=== PATIENT | male | born 1950 | race Caucasian/White ===

== ENCOUNTER 2020-07-02 09:45 | Inpatient (IN) | payer MEDICAID, MEDICARE ==
[~2020-07-02] VITALS: Ht 165.1 cm; Wt 117.9 kg
--- NOTE | 2020-07-02 10:10 | NUR ---
Dr ramirez at the bedside for eval. Pt's o2 sat on room air 70%, place pt on NRM at 15L, O2 sat improved to 93%.
[2020-07-02] MEDS ORDERED: IVERMECTIN PO (10:23)
[2020-07-02] MEDS ORDERED: DEXAMETHASONE SOD PHOSPHATE 4 MG INJ IV ONE (10:30)
[2020-07-02] MEDS ORDERED: DEXAMETHASONE SOD PHOSPHATE 10 MG INJ ONE (10:31)
[2020-07-02 10:33] LABS: BASOPHILS # (AUTO) 0.4 K/uL (0.0-8.0); HEMATOCRIT 40.4 % (36.7-47.1); HEMOGLOBIN 13.7 g/dL (12.5-16.3); LYMPHOCYTES # (AUTO) 0.9 K/uL (20.0-40.0); LYMPHOCYTES % (AUTO) 15.4 % (20.5-51.5); MEAN CORPUSCULAR HEMOGLOBIN 30.1 uug (23.8-33.4); MEAN CORPUSCULAR HGB CONC 34 g/dL (32.5-36.3); MEAN CORPUSCULAR VOLUME 88.9 fL (73.0-96.2); MONOCYTES # (AUTO) 0.5 K/uL (2.0-10.0); MONOCYTES % (AUTO) 8.2 % (0.0-11.0); NEUTROPHILS # (AUTO) 4.3 K/uL (1.8-8.9); PLATELET COUNT (AUTO) 302 K/uL (152-348); RED BLOOD CELL COUNT(AUTO) 4.54 MIL/uL (4.06-5.63); WHITE BLOOD COUNT (AUTO) 6.1 K/uL (3.6-10.2)
--- NOTE | 2020-07-02 10:35 | NUR ---
RT at the bedside for ABG.
[2020-07-02 10:39] LABS: ABG BASE EXCESS 1.7 mmol/L; ABG HCO3 24.7 mmol/L; ABG PCO2 33.9 mmHg (35.0-45.0); ABG PO2 62.2 mmHg (75.0-100.0); ABG SITE LEFT RADIAL; ABG TOTAL HEMOGLOBIN 13.6 G/dL (13.5-18.0); COHb 1.1 % (0.5-1.5); MetHb 0.1 % (0.0-1.5); O2Hb 91.8 % (94.0-97.0)
[2020-07-02 10:44] LABS: CREATININE 1.2 mg/dL (0.6-1.3); POTASSIUM 3.9 mmol/L (3.5-5.1)
[2020-07-02] MEDS ORDERED: ACETAMINOPHEN ES 500 MG TABLET ONE (10:58)
[2020-07-02] MEDS ORDERED: AZITHROMYCIN IV 500 MG in IV DEXTROSE 5% 250 ML IV ONE (11:00)
[2020-07-02] MEDS ORDERED: IV NORMAL SALINE 1000 ML BAG IV ONE (11:00)
[2020-07-02] MEDS ORDERED: CEFTRIAXONE 1 G in IV DEXTROSE 5% 50 ML IV ONE (11:00)
[2020-07-02] MEDS ORDERED: ACETAMINOPHEN 325 MG TABLET PO ONE (11:00)
[2020-07-02 11:01] LABS: BILIRUBIN,DIRECT 0.3 mg/dL (0.0-0.2); BILIRUBIN,TOTAL 0.8 mg/dL (0.2-1.0); TOTAL PROTEIN, SERUM 7.4 g/dL (6.4-8.2)
[2020-07-02] MEDS ORDERED: CEFTRIAXONE /D5W 50ML IVPB **ER PYXIS IV ONE (11:12)
[2020-07-02] MEDS ORDERED: AZITHROMYCIN 500MG/ D5W 250ML IVPB **ER PYXIS ONLY IV ONE (11:13)
--- NOTE | 2020-07-02 11:20 | NUR ---
Pt to be admitted to [facility] bed, to Dr Rodriguez.
[2020-07-02] MEDS ORDERED: BENA40TA8 PO (12:53)
[2020-07-02] MEDS ORDERED: TERA2CAP4 PO (12:53)
[2020-07-02] MEDS ORDERED: ALBUTEROL SULFATE 8 GM HFA.AER.AD IH PRN (13:30)
[2020-07-02] MEDS ORDERED: ONDANSETRON 4 MG/2 ML VIAL IV PRN (13:30)
--- NOTE | 2020-07-02 14:31 | NUR ---
Pt continues to be on the High flow Nasal canula @ 40L oxygen.
--- NOTE | 2020-07-02 14:40 | NUR ---
RECEIVED PATIENT FOR ADMISSION 70 YEARS MALE BY W/CHAIR WITH DX OF PNEUMONIA PLACED INTO BED FIXED AND MADE COMFORTABLE PATIENT ORIENTED TO ROOM AND FACILITY PROTOCOL HE OS HO YANDEL O2 AT 40 PERCENT WITH SATS AT 96 PERCENT DENIES PAIN OR DISCOMFORTS AT THIS TIME WILL CONTINUE TO OBSERVE.
--- NOTE | 2020-07-02 16:47 | NUR ---
PATIENT REMOVED HIS CANULA FOR THE HIGH YANDEL SEEN IN THE BATHROOM ASKED HIM IF IT WILL BE POSSIBLE TO USE THE URINAL HE STATED NO PREFERS TO GO TO THE BATHROOM NOTED COUGHING EPISODES.
[2020-07-02 18:19] VITALS: BP 145/86
--- NOTE | 2020-07-02 19:30 | NUR ---
RECEIVED PT AWAKE, ALERT AND ORIENTEDX4. PT COUGHING. IV INTACT. PT ON HIGH FLOW OXYGEN. PT HAVE STEADY GAIT. SAFETY AND COMFORT PROVIDED. WILL CONTINUE TO MONITOR.
[2020-07-02 20:00] VITALS: BP 150/52
[2020-07-02] MEDS: TERAZOSIN 1 MG CAPSULE PO SCH (20:40)
[2020-07-02] MEDS: FAMOTIDINE 20 MG TABLET PO SCH (20:41)
[2020-07-02] MEDS: GUAIFENESIN/DEXTROMETHORPHAN 5 ML UDC PO PRN (21:20)
[2020-07-02] MEDS: ACETAMINOPHEN 325 MG TABLET PO PRN (21:20)
[2020-07-02] MEDS: ENOXAPARIN SODIUM 40 MG/0.4 ML DISP.SYRIN SQ SCH (21:58)
[2020-07-03 00:10] VITALS: BP 144/86
[2020-07-03 00:58] LABS: *BILIRUBIN,URIN NEGATIVE (NEGATIVE); *BLOOD, URINE NEGATIVE (NEGATIVE); *CLARITY,URINE CLEAR (CLEAR); *COLOR,URINE DARK YELLOW (YELLOW); *KETONES,URINE NEGATIVE (NEGATIVE); *UROBILINOGEN,URINE 0.2 E.U./dl (NORMAL); LEUKOCYTE ESTERASE ,URINE NEGATIVE (NEGATIVE); NITRITE, URINE NEGATIVE (NEGATIVE); UGLUCOSE NEGATIVE (NEGATIVE)
[2020-07-03] MEDS: ACETAMINOPHEN 325 MG TABLET PO PRN ×2 (03:24→21:45)
[2020-07-03] MEDS: GUAIFENESIN/DEXTROMETHORPHAN 5 ML UDC PO PRN ×2 (03:24→21:45)
[2020-07-03 05:02] VITALS: BP 140/68
--- NOTE | 2020-07-03 06:19 | NUR ---
PT SLEPT INTERMITTENTLY. PT IN NO ACUTE DISTRESS. PRESCRIBED MEDICATION GIVEN AND PT TOLERATED IT WELL. IV INTACT. PT ON HIGH FLOW OXYGEN. AT 2029H DR. AMANDA ORDERED ROBITUSSIN DM 10ML Q6HPRN FOR PT. AT 2119HAND 032H ROBITUSSIN DM PRN AND TYLENOL PRN GIVEN FOR PT. PT TOLERATED IT WELL. SAFETY AND COMFORT PROVIDED. ALL NEEDS ARE MET. WILL ENDORSE TO INCOMING NURSE FOR CONTINUTIY OF CARE.
[2020-07-03 06:40] LABS: BASOPHILS % (AUTO) 0.1 % (0.0-2.0); HEMATOCRIT 38.9 % (36.7-47.1); LYMPHOCYTES # (AUTO) 0.9 K/uL (20.0-40.0); LYMPHOCYTES % (AUTO) 16.8 % (20.5-51.5); MEAN CORPUSCULAR HEMOGLOBIN 30.3 uug (23.8-33.4); MEAN CORPUSCULAR HGB CONC 33 g/dL (32.5-36.3); MEAN CORPUSCULAR VOLUME 90.8 fL (73.0-96.2); MONOCYTES # (AUTO) 0.6 K/uL (2.0-10.0); MONOCYTES % (AUTO) 11.4 % (0.0-11.0); NEUTROPHILS # (AUTO) 3.8 K/uL (1.8-8.9); NEUTROPHILS % (AUTO) 71.7 % (38.5-71.5); PLATELET COUNT (AUTO) 295 K/uL (152-348); RED BLOOD CELL COUNT(AUTO) 4.29 MIL/uL (4.06-5.63); WHITE BLOOD COUNT (AUTO) 5.3 K/uL (3.6-10.2)
--- NOTE | 2020-07-03 07:30 | NUR ---
Received pt sitting on edge of bed, A&Ox4. No s/s of acute distress, no SOB. Pt on O2 via high flow NC at 40 L. No cough. Pt denies pain or discomfort. IV patent and intact. Call light and belongings in reach. Safety precautions in place. Will continue plan of care, will continue to monitor.
[2020-07-03 07:50] LABS: BILIRUBIN,TOTAL 0.6 mg/dL (0.2-1.0); CREATININE 0.9 mg/dL (0.6-1.3); POTASSIUM 4.1 mmol/L (3.5-5.1); TOTAL PROTEIN, SERUM 6.9 g/dL (6.4-8.2)
[2020-07-03] MEDS: FAMOTIDINE 20 MG TABLET PO SCH ×2 (09:51→21:45)
[2020-07-03] MEDS: DEXAMETHASONE SOD PHOSPHATE 4 MG INJ IV SCH (09:52)
[2020-07-03] MEDS: BENAZEPRIL HCL 20 MG TABLET PO SCH (10:38)
[2020-07-03] MEDS ORDERED: CEFTRIAXONE 1 G in IV DEXTROSE 5% 50 ML IV SCH (11:00)
[2020-07-03 11:08] VITALS: BP 143/71
[2020-07-03] MEDS: AZITHROMYCIN IV 500 MG in IV DEXTROSE 5% 250 ML IV SCH (13:50)
[2020-07-03] MEDS ORDERED: ACETAMINOPHEN 325 MG TABLET PO ONE (14:30)
[2020-07-03] MEDS ORDERED: diphenhydrAMINE 50 MG/1 ML VIAL IV ONE (14:30)
[2020-07-03] MEDS ORDERED: TOCILIZUMAB 400 MG in IV NORMAL SALINE 80 ML IV ONE (15:00)
[2020-07-03 16:19] VITALS: BP 139/74
[2020-07-03] MEDS: TERAZOSIN 1 MG CAPSULE PO SCH (17:11)
--- NOTE | 2020-07-03 18:30 | NUR ---
IV Actemra administered to pt per order. No s/s of adverse reaction, no SOB. Pt denies pain or discomfort. Will continue to monitor.
--- NOTE | 2020-07-03 19:27 | NUR ---
Pt in bed, no s/s of acute distress, no SOB. Pt denies pain or discomfort. All due medications given per order. All care given as ordered. All needs met throughout shift. Safety measures maintained. Call light within reach, usage reinforced. Belongings within reach. Will endorse care to council member nurse.
--- NOTE | 2020-07-03 19:30 | NUR ---
RECEIVED PT AWAKE, ALERT AND ORIENTEDX4. IV INTACT. PT ON HIGH FLOW OXYGEN. SAFETY AND COMFORT PROVIDED. WILL CONTINUE TO MONITOR.
[2020-07-03 20:00] VITALS: BP 131/64
[2020-07-03] MEDS: ENOXAPARIN SODIUM 40 MG/0.4 ML DISP.SYRIN SQ SCH (21:45)
[2020-07-04 01:03] VITALS: BP 139/76
[2020-07-04 04:00] VITALS: BP 131/71
[2020-07-04] MEDS: ACETAMINOPHEN 325 MG TABLET PO PRN ×2 (05:00→18:03)
[2020-07-04] MEDS: GUAIFENESIN/DEXTROMETHORPHAN 5 ML UDC PO PRN ×2 (05:00→18:05)
--- NOTE | 2020-07-04 06:21 | NUR ---
PT SLEPT INTERMITTENTLY. PT IN NO ACUTE DISTRESS. IV INTACT. PT ON 40L HIGH FLOW. PRESCRIBED MEDICATION GIVEN AND PT TOLERATED IT WELL. PT GIVEN TYLENOL 650 MG PRN AND ROBITUSSIN DM PRN AT 2145H AND 0500H. SAFETY AND COMFORT PROVIDED. ALL NEEDS ARE MET.WILL CONTINUE TO MONITOR.
[2020-07-04 08:36] LABS: CREATININE 0.9 mg/dL (0.6-1.3); POTASSIUM 4.6 mmol/L (3.5-5.1)
[2020-07-04] MEDS: BENAZEPRIL HCL 20 MG TABLET PO SCH (09:11)
[2020-07-04] MEDS: FAMOTIDINE 20 MG TABLET PO SCH ×2 (09:11→20:09)
[2020-07-04] MEDS: DEXAMETHASONE SOD PHOSPHATE 4 MG INJ IV SCH (09:12)
[2020-07-04] MEDS: AZITHROMYCIN IV 500 MG in IV DEXTROSE 5% 250 ML IV SCH (10:50)
[2020-07-04 11:39] VITALS: BP 153/92
[2020-07-04 11:44] LABS: BASOPHILS # (AUTO) 0.1 K/uL (0.0-8.0); BASOPHILS % (AUTO) 2.5 % (0.0-2.0); EOSINOPHILS % (AUTO) 0.2 % (0.0-7.0); HEMATOCRIT 42.9 % (36.7-47.1); LYMPHOCYTES # (AUTO) 0.8 K/uL (20.0-40.0); LYMPHOCYTES % (AUTO) 13.8 % (20.5-51.5); MEAN CORPUSCULAR HEMOGLOBIN 29.8 uug (23.8-33.4); MEAN CORPUSCULAR HGB CONC 33 g/dL (32.5-36.3); MEAN CORPUSCULAR VOLUME 91.3 fL (73.0-96.2); MONOCYTES # (AUTO) 0.4 K/uL (2.0-10.0); MONOCYTES % (AUTO) 6.8 % (0.0-11.0); NEUTROPHILS # (AUTO) 4.5 K/uL (1.8-8.9); NEUTROPHILS % (AUTO) 76.7 % (38.5-71.5); PLATELET COUNT (AUTO) 362 K/uL (152-348); WHITE BLOOD COUNT (AUTO) 5.8 K/uL (3.6-10.2)
[2020-07-04 15:58] VITALS: BP 131/75
[2020-07-04] MEDS: TERAZOSIN 1 MG CAPSULE PO SCH (17:16)
--- NOTE | 2020-07-04 19:30 | NUR ---
Pt received laying down in bed. Denies pain or SOB at this time. On 40L NC and is sating at 94%. Denies chest pain. Bed is locked and in lowest position. Pt is SR on monitor. No other issues or concerns at this time.
[2020-07-04] MEDS: ENOXAPARIN SODIUM 40 MG/0.4 ML DISP.SYRIN SQ SCH (20:12)
[2020-07-04 21:03] VITALS: BP 136/64
[2020-07-05 00:03] VITALS: BP 124/60
[2020-07-05 04:03] VITALS: BP 133/77
--- NOTE | 2020-07-05 07:00 | NUR ---
Pt slept throughout the night with no complaints. Denies pain or SOB. Safety and comfort provided. SR on monitor. No other issues or concerns at this time. Will endorse to day shift.
--- NOTE | 2020-07-05 08:00 | NUR ---
patient in bed resting comfortably, with hi flow o2 saturating 95%, no ss of pain or acute distress. continue plan of care
[2020-07-05] MEDS: ACETAMINOPHEN 325 MG TABLET PO PRN (09:24)
[2020-07-05] MEDS: FAMOTIDINE 20 MG TABLET PO SCH ×2 (09:24→21:00)
[2020-07-05] MEDS: BENAZEPRIL HCL 20 MG TABLET PO SCH (09:24)
[2020-07-05] MEDS: DEXAMETHASONE SOD PHOSPHATE 4 MG INJ IV SCH (09:25)
[2020-07-05] MEDS: AZITHROMYCIN IV 500 MG in IV DEXTROSE 5% 250 ML IV SCH (11:23)
[2020-07-05 11:44] VITALS: BP 131/73
--- NOTE | 2020-07-05 12:00 | NUR ---
seen by dr north and sen, see notes
--- NOTE | 2020-07-05 14:51 | NUR ---
awaiting convalescent plasma pending results of covid 19 PCR
--- NOTE | 2020-07-05 15:30 | NUR ---
Pt doing well. No respiratory distress noted. Decreased Liter Flow on HFNC to 30L 100%. BLAIRE Mcnamara notified. Pt tolerating changes well.
[2020-07-05 16:00] VITALS: BP 144/87
[2020-07-05] MEDS: TERAZOSIN 1 MG CAPSULE PO SCH (17:42)
--- NOTE | 2020-07-05 19:30 | NUR ---
Received patient awake and alert in bed. Denies pain or SOB at this time.On 30L NC. SR on monitor. No other issues or concerns at this time.
[2020-07-05 20:03] VITALS: BP 124/70
[2020-07-05] MEDS: ENOXAPARIN SODIUM 40 MG/0.4 ML DISP.SYRIN SQ SCH (20:28)
--- NOTE | 2020-07-05 21:00 | NUR ---
Drawer for pyxis would not open, could not get Pepcid. Pharmacy was already gone
[2020-07-06] VITALS (11 sets, daily range): BP systolic 112–145; BP diastolic 54–68
[2020-07-06] MEDS: GUAIFENESIN/DEXTROMETHORPHAN 5 ML UDC PO PRN ×2 (03:54→18:11)
--- NOTE | 2020-07-06 06:37 | NUR ---
Pt slept intermittently throughout the night. Pt is on 30L sating at 93%. Denies having pain or difficulty breathing. At 0345H pt was coughing and was provided with tea and cough syrup. Tolerated cough syrup well with relief. [facility] called to notify that plasma was . Another type and cross was ordered and completed. Waiting for PCR results to come back to begin with plasma treatment. Bed is locked and in the lowest position. Call light is within reach. No other issues or concerns at this time. Will endorse to day shift.
[2020-07-06 06:53] LABS: BASOPHILS % (AUTO) 0.2 % (0.0-2.0); EOSINOPHILS % (AUTO) 0.4 % (0.0-7.0); HEMOGLOBIN 13.4 g/dL (12.5-16.3); LYMPHOCYTES # (AUTO) 1.2 K/uL (20.0-40.0); LYMPHOCYTES % (AUTO) 17.7 % (20.5-51.5); MEAN CORPUSCULAR HEMOGLOBIN 29.5 uug (23.8-33.4); MEAN CORPUSCULAR HGB CONC 33 g/dL (32.5-36.3); MEAN CORPUSCULAR VOLUME 90.5 fL (73.0-96.2); MONOCYTES # (AUTO) 0.5 K/uL (2.0-10.0); NEUTROPHILS # (AUTO) 4.9 K/uL (1.8-8.9); NEUTROPHILS % (AUTO) 73.7 % (38.5-71.5); PLATELET COUNT (AUTO) 340 K/uL (152-348); RED BLOOD CELL COUNT(AUTO) 4.53 MIL/uL (4.06-5.63); WHITE BLOOD COUNT (AUTO) 6.6 K/uL (3.6-10.2)
[2020-07-06 07:31] LABS: BILIRUBIN,TOTAL 0.5 mg/dL (0.2-1.0); CREATININE 0.8 mg/dL (0.6-1.3); POTASSIUM 4.3 mmol/L (3.5-5.1); TOTAL PROTEIN, SERUM 6.5 g/dL (6.4-8.2)
[2020-07-06] MEDS: FAMOTIDINE 20 MG TABLET PO SCH ×2 (08:34→20:08)
[2020-07-06] MEDS: DEXAMETHASONE SOD PHOSPHATE 4 MG INJ IV SCH (08:35)
[2020-07-06] MEDS: BENAZEPRIL HCL 20 MG TABLET PO SCH (08:49)
[2020-07-06] MEDS: AZITHROMYCIN IV 500 MG in IV DEXTROSE 5% 250 ML IV SCH (11:10)
--- NOTE | 2020-07-06 15:30 | NUR ---
TRANSFUSED CONVALESCENT PLASMA ORDERED AND PER PROTOCOL. PATIENT TOLERATED WELL. NO S/S OF DISTRESS NOTED THROUGHOUT. VSS. DENIES PAIN OR SOB AT THIS TIME. WILL CONTINUE TO MONITOR.
[2020-07-06] MEDS: TERAZOSIN 1 MG CAPSULE PO SCH (18:10)
[2020-07-06] MEDS: ENOXAPARIN SODIUM 40 MG/0.4 ML DISP.SYRIN SQ SCH (20:11)
[2020-07-07 01:35] VITALS: BP 125/69
[2020-07-07 05:09] VITALS: BP 98/57
--- NOTE | 2020-07-07 05:50 | NUR ---
TITRATED OXYGEN TO 2L NC. PATIENT SATURATION AT 92% AND TOLERATING WELL. DENIES SOB AT REST. NO S/S OF DISTRESS AT THIS TIME. PATIENT ABLE TO SLEEP THROUGHOUT THE NIGHT. SAFETY PRECAUTIONS IN PLACE. ALL NEEDS MET.
[2020-07-07 07:29] LABS: BASOPHILS % (AUTO) 0.2 % (0.0-2.0); EOSINOPHILS # (AUTO) 0.1 K/uL (0.0-0.7); EOSINOPHILS % (AUTO) 0.9 % (0.0-7.0); HEMATOCRIT 43.4 % (36.7-47.1); HEMOGLOBIN 14.1 g/dL (12.5-16.3); LYMPHOCYTES # (AUTO) 2.2 K/uL (20.0-40.0); LYMPHOCYTES % (AUTO) 24.9 % (20.5-51.5); MEAN CORPUSCULAR HEMOGLOBIN 29.7 uug (23.8-33.4); MEAN CORPUSCULAR HGB CONC 33 g/dL (32.5-36.3); MEAN CORPUSCULAR VOLUME 91.2 fL (73.0-96.2); MONOCYTES # (AUTO) 0.7 K/uL (2.0-10.0); MONOCYTES % (AUTO) 8.5 % (0.0-11.0); NEUTROPHILS # (AUTO) 5.7 K/uL (1.8-8.9); NEUTROPHILS % (AUTO) 65.5 % (38.5-71.5); PLATELET COUNT (AUTO) 387 K/uL (152-348); RED BLOOD CELL COUNT(AUTO) 4.76 MIL/uL (4.06-5.63); WHITE BLOOD COUNT (AUTO) 8.7 K/uL (3.6-10.2)
[2020-07-07 07:40] LABS: POTASSIUM 4.2 mmol/L (3.5-5.1)
[2020-07-07] MEDS: FAMOTIDINE 20 MG TABLET PO SCH ×2 (08:51→21:01)
[2020-07-07] MEDS: DEXAMETHASONE SOD PHOSPHATE 4 MG INJ IV SCH (08:51)
[2020-07-07] MEDS: BENAZEPRIL HCL 20 MG TABLET PO SCH (08:52)
--- NOTE | 2020-07-07 09:00 | NUR ---
RECEIVED PATIENT IN BED AWAKE ALERT ORIENTED AND COOPERATIVE DENIES PAIN OR DISCOMFORTS AT THIS TIME HE IS ON RESPIRATORY ISOLATION WITH O2 ORDERED WITH NO SOB AMBULATORY TO AND FROM THE BATHROOM AND VOIDING WELL MADE COMFORTABLE NOT IN DISTRESS AT THIS TIME WILL CONTINUE TO OBSERVE.
[2020-07-07 12:06] VITALS: BP 112/53
--- NOTE | 2020-07-07 15:19 | NUR ---
PATIENT SEEN AND EXAMINED BY DR AMANDA WITH NEW ORDERS AND NOTED.
[2020-07-07 16:00] VITALS: BP 119/73
--- NOTE | 2020-07-07 16:30 | NUR ---
PER THE RESPIRATORY THERAPIST PATIENT IS ON 6L/M BY THE NASAL CANULLA WITH SATS AT 93-94 PERCENT WITH NO SOB AT THIS TIME.
[2020-07-07] MEDS: TERAZOSIN 1 MG CAPSULE PO SCH (17:13)
--- NOTE | 2020-07-07 18:46 | NUR ---
RESTING WITH NO SOB REMAIN ON ISOLATION ORDERED WITH O2 AT 6L/M NOT IN DISTRESS AT THIS TIME
--- NOTE | 2020-07-07 19:30 | NUR ---
Received patient lying in bed. Asleep, but arouse to verbal stimuli. AOx4. Denies any pain or SOB. In no acute distress. On O2 at 6LPM via NC. NSR on tele at 73/min. IV site on left FA intact and patent. COVID isolation precaution initiated. Safety measure initiated and call allen within reached. Continue to monitor.
[2020-07-07] MEDS: ENOXAPARIN SODIUM 40 MG/0.4 ML DISP.SYRIN SQ SCH (21:02)
[2020-07-07 21:18] VITALS: BP 97/47
[2020-07-08 01:09] VITALS: BP 106/56
[2020-07-08 06:40] VITALS: BP 118/65
--- NOTE | 2020-07-08 06:49 | NUR ---
No significant event throughout the shift. Remains AOx4. O2 at 6LPM via NC. NSR on tele at 65/min. IV site on left FA intact and patent. COVID isolation precaution maintained. Needs attended to and met. Safety measure maintained and call allen within reached.
--- NOTE | 2020-07-08 08:45 | NUR ---
RECEIVED PATIENT IN BED AWAKE ALERT AND VERBALLY RESPONSIVE WITH LANGUAGE BARRIER BUT ABLE TO MAKE SIMPLE NEEDS KNOWN IN [place] REMAIN ON O2 AT 20L HI YANDEL OXYGEN WITH SATS AT 99 PERCENT NO SOB AT THIS TIME.CALL LIGHTS AND PERSONAL BELONGINGS ARE WITHIN EASY REACH NOT IN DISTRESS WILL CONTINUE TO OBSERVE. Addendum: 07/08/20 at 1216 by NADIYA JACQUES RN ERROR WRONG PATIENT
[2020-07-08] MEDS: DEXAMETHASONE SOD PHOSPHATE 4 MG INJ IV SCH (08:50)
[2020-07-08] MEDS: FAMOTIDINE 20 MG TABLET PO SCH ×2 (08:50→20:42)
[2020-07-08] MEDS: BENAZEPRIL HCL 20 MG TABLET PO SCH (08:51)
--- NOTE | 2020-07-08 09:30 | NUR ---
DR MARI HERE SEEN PATIENT WITH NO NEW ORDERS AT THIS TIME.
[2020-07-08 09:45] LABS: BASOPHILS % (AUTO) 0.2 % (0.0-2.0); EOSINOPHILS # (AUTO) 0.1 K/uL (0.0-0.7); EOSINOPHILS % (AUTO) 1.5 % (0.0-7.0); HEMATOCRIT 44.9 % (36.7-47.1); HEMOGLOBIN 14.6 g/dL (12.5-16.3); LYMPHOCYTES # (AUTO) 1.5 K/uL (20.0-40.0); MEAN CORPUSCULAR HEMOGLOBIN 29.5 uug (23.8-33.4); MEAN CORPUSCULAR HGB CONC 32 g/dL (32.5-36.3); MEAN CORPUSCULAR VOLUME 90.8 fL (73.0-96.2); MONOCYTES # (AUTO) 0.2 K/uL (2.0-10.0); MONOCYTES % (AUTO) 3.6 % (0.0-11.0); NEUTROPHILS # (AUTO) 4.9 K/uL (1.8-8.9); NEUTROPHILS % (AUTO) 72.7 % (38.5-71.5); PLATELET COUNT (AUTO) 386 K/uL (152-348); RED BLOOD CELL COUNT(AUTO) 4.94 MIL/uL (4.06-5.63); WHITE BLOOD COUNT (AUTO) 6.7 K/uL (3.6-10.2)
[2020-07-08 10:52] LABS: BILIRUBIN,TOTAL 0.4 mg/dL (0.2-1.0); CREATININE 0.8 mg/dL (0.6-1.3); MAGNESIUM 2.1 mg/dL (1.8-2.4); PHOSPHOROUS 3.8 mg/dL (2.5-4.9); POTASSIUM 4.7 mmol/L (3.5-5.1); TOTAL PROTEIN, SERUM 6.9 g/dL (6.4-8.2)
[2020-07-08 12:00] VITALS: BP 107/60
[2020-07-08 16:00] VITALS: BP 131/76
--- NOTE | 2020-07-08 16:30 | NUR ---
PATIENT CALLED ME INTO HIS ROOM STATED THAT HIS HEPLOCK CAME OUT ACCIDENTLY PRESSURE AND SMALL DRESSING APPLIED PATIENT STATED DOES NOT WANT THE HEPLOCK REPLACED NOW WILL ATTEMPT AGAIN LATER. PATIENT IS NOT ON IVF JUST HAS DECADRON IN THE MORNING WILL ENDORSE.
[2020-07-08] MEDS: TERAZOSIN 1 MG CAPSULE PO SCH (17:06)
--- NOTE | 2020-07-08 18:00 | NUR ---
DR AMANDA HERE TO SEE PATIENT AND WANTS HIS O2 TO BE TITRATED SO I CALLED THE RESPIRATORY THERAPIST AND HE ATTEMPTED AND STATED THAT AT 5L/M PATIENT IS AT 90 PERCENT WILL KEEP AT 5L.
--- NOTE | 2020-07-08 19:30 | NUR ---
AOx4. Denies any pain or SOB. In no acute distress. On O2 at 5LPM via NC. NSR on tele at 88/min. COVID isolation precaution initiated. Safety measure initiated and call allen within reached.
[2020-07-08 20:00] VITALS: BP 130/56
[2020-07-08 20:24] LABS: NEUTROPHILS % (MANUAL) 69 % (42-75)
[2020-07-08 20:25] LABS: EOSINOPHILS % (MANUAL) 1 % (0-8); LYMPHOCYTES % (MANUAL) 24 % (20-40); MONOCYTES % (MANUAL) 6 % (2-10)
[2020-07-08] MEDS: ENOXAPARIN SODIUM 40 MG/0.4 ML DISP.SYRIN SQ SCH (20:42)
--- NOTE | 2020-07-08 21:00 | NUR ---
Started new IV site on left wrist #[id number].
[2020-07-09] VITALS: BP 136/74
[2020-07-09 04:00] VITALS: BP 97/56
--- NOTE | 2020-07-09 06:30 | NUR ---
No significant event throughout the shift. Remains AOx4. O2 at 5LPM via NC. SR, SB on tele at 56-65/min. Slept well last night. Needs attended to and met. COVID isolation precaution maintained. Safety measure maintained and call allen within reached.
[2020-07-09 07:50] LABS: BASOPHILS % (AUTO) 0.1 % (0.0-2.0); EOSINOPHILS % (AUTO) 0.2 % (0.0-7.0); HEMOGLOBIN 13.9 g/dL (12.5-16.3); LYMPHOCYTES # (AUTO) 2.4 K/uL (20.0-40.0); LYMPHOCYTES % (AUTO) 19.6 % (20.5-51.5); MEAN CORPUSCULAR HEMOGLOBIN 29.8 uug (23.8-33.4); MEAN CORPUSCULAR HGB CONC 33 g/dL (32.5-36.3); MEAN CORPUSCULAR VOLUME 90.2 fL (73.0-96.2); MONOCYTES % (AUTO) 8.7 % (0.0-11.0); NEUTROPHILS # (AUTO) 8.6 K/uL (1.8-8.9); NEUTROPHILS % (AUTO) 71.4 % (38.5-71.5); PLATELET COUNT (AUTO) 367 K/uL (152-348); RED BLOOD CELL COUNT(AUTO) 4.66 MIL/uL (4.06-5.63)
[2020-07-09 07:58] LABS: CREATININE 0.9 mg/dL (0.6-1.3); POTASSIUM 4.3 mmol/L (3.5-5.1)
--- NOTE | 2020-07-09 08:30 | NUR ---
DR MARI HERE TO SEE PATIENT WITH NO NEW ORDERS AT THIS TIME.
--- NOTE | 2020-07-09 09:00 | NUR ---
ALERT AND ORIENTED DENIES PAIN OR DISCOMFORTS AT THIS TIME REMAIN ON RESPIRATORY ISOLATION FOR COVID ON O2 AT 5L/M BY NASAL CANULLA WITH NO SOB AT THIS TIME AMBULATORY TO AND FROM THE BATHROOM VOIDING WELL NOT IN DISTRESS AT THIS TIME WILL CONTINUE TO OBSERVE.
[2020-07-09] MEDS: DEXAMETHASONE SOD PHOSPHATE 4 MG INJ IV SCH (09:59)
[2020-07-09] MEDS: FAMOTIDINE 20 MG TABLET PO SCH ×2 (10:01→21:45)
[2020-07-09] MEDS: BENAZEPRIL HCL 20 MG TABLET PO SCH (10:02)
[2020-07-09 11:16] VITALS: BP 90/41
[2020-07-09 14:06] LABS: CRYPTOCOCCUS AB, SERUM Negative (Negative)
[2020-07-09 15:02] VITALS: BP 117/57
--- NOTE | 2020-07-09 16:00 | NUR ---
DR AMANDA HERE TO SEE PATIENT WITH NO NEW ORDERS AT THIS TIME.
--- NOTE | 2020-07-09 16:30 | NUR ---
THE RESPIRATORY THERAPIST HERE AND TITRATED HIS O2 TO 4L/M AND HIS SATS IS AT 93 PERCENT HE DENIES SOB AT THIS TIME REMAIN ON ISOLATION FOR COVID MADE COMFORTABLE WILL CONTINUE TO OBSERVE.
[2020-07-09] MEDS: TERAZOSIN 1 MG CAPSULE PO SCH (17:25)
[2020-07-09 20:24] VITALS: BP 107/66
[2020-07-09] MEDS: ENOXAPARIN SODIUM 40 MG/0.4 ML DISP.SYRIN SQ SCH (21:37)
[2020-07-09] MEDS: ACETAMINOPHEN 325 MG TABLET PO PRN (21:45)
[2020-07-10 00:11] VITALS: BP 102/63
[2020-07-10 04:00] VITALS: BP 121/71
[2020-07-10] MEDS: FAMOTIDINE 20 MG TABLET PO SCH ×2 (08:29→21:02)
[2020-07-10] MEDS: DEXAMETHASONE SOD PHOSPHATE 4 MG INJ IV SCH (08:29)
[2020-07-10] MEDS: BENAZEPRIL HCL 20 MG TABLET PO SCH (08:30)
[2020-07-10] MEDS ORDERED: DEXA6TAB6 PO (09:49)
--- NOTE | 2020-07-10 10:00 | NUR ---
PATIENT SEEN AND EXAMINED BY DR KEENE WITH ORDER TO DISCHARGE PATIENT HOME AFTER ARRANGEMENTS ARE MADE FOR HOME O2 HE IS CURRENTLY ON 2L/M BY NASAL CANULLA WITH NO SOB AT THIS TIME.
[2020-07-10 11:33] VITALS: BP 93/48
--- NOTE | 2020-07-10 13:57 | NUR ---
PATIENT IS CURRENTLY ON O2 AT 3L/M CHECKED O2 SAT ON ROOM AIR AT REST AND ITS 88 PERCENT O2 REAPPLIED AT THIS TIME
[2020-07-10 16:00] VITALS: BP 106/55
[2020-07-10] MEDS: TERAZOSIN 1 MG CAPSULE PO SCH (17:02)
[2020-07-10 20:00] VITALS: BP 105/40
[2020-07-10] MEDS: ENOXAPARIN SODIUM 40 MG/0.4 ML DISP.SYRIN SQ SCH (21:03)
[2020-07-10 21:07] LABS: COCCIDIOIDES CF SERUM Negative (Neg:<1:2)
[2020-07-11] VITALS: BP 130/78
[2020-07-11 04:00] VITALS: BP 122/57
--- NOTE | 2020-07-11 06:29 | NUR ---
patient rested well in between care; no acute distress; safety maintained.
[2020-07-11 07:04] LABS: BASOPHILS % (AUTO) 0.1 % (0.0-2.0); EOSINOPHILS % (AUTO) 0.3 % (0.0-7.0); HEMATOCRIT 44.2 % (36.7-47.1); HEMOGLOBIN 14.5 g/dL (12.5-16.3); LYMPHOCYTES # (AUTO) 2.6 K/uL (20.0-40.0); LYMPHOCYTES % (AUTO) 23.1 % (20.5-51.5); MEAN CORPUSCULAR HEMOGLOBIN 29.9 uug (23.8-33.4); MEAN CORPUSCULAR HGB CONC 33 g/dL (32.5-36.3); MONOCYTES % (AUTO) 9.1 % (0.0-11.0); NEUTROPHILS # (AUTO) 7.4 K/uL (1.8-8.9); NEUTROPHILS % (AUTO) 67.4 % (38.5-71.5); PLATELET COUNT (AUTO) 362 K/uL (152-348); RED BLOOD CELL COUNT(AUTO) 4.85 MIL/uL (4.06-5.63)
[2020-07-11 07:15] LABS: MAGNESIUM 2.3 mg/dL (1.8-2.4); PHOSPHOROUS 4.2 mg/dL (2.5-4.9); POTASSIUM 4.4 mmol/L (3.5-5.1)
[2020-07-11] MEDS: BENAZEPRIL HCL 20 MG TABLET PO SCH (09:00)
[2020-07-11] MEDS: FAMOTIDINE 20 MG TABLET PO SCH (09:38)
[2020-07-11] MEDS: DEXAMETHASONE SOD PHOSPHATE 4 MG INJ IV SCH (09:39)
[2020-07-11 12:00] VITALS: BP 103/60
--- NOTE | 2020-07-11 15:01 | NUR ---
pt in o2 @ 2LPM, saturation 94%. he would sometimes removed his oxygen saturation reading @ 92%, encouraged pt to put back his oxygen cannula pt preparing for discharged talked to outsole caser and , waiting for payment information from for oxygen machine
[2020-07-11 16:00] VITALS: BP 117/68
[2020-07-11 18:00] VITALS: BP 108/62
[2020-07-11] MEDS: TERAZOSIN 1 MG CAPSULE PO SCH (18:00)
--- NOTE | 2020-07-11 19:12 | NUR ---
pt is discharged with his discharge instructions and pocket, teach pt and son to use his oxygen machine to maintain his o2 saturation above 95%, pt would sometime removed his nasal cannula his o2 sat reading would drop below 90%. pt and son understand and verbalize their understanding that he will use o2 when resting and activity. son brought o2 tank from home. all paperwork signed and in chart with copy given to pt. medication sent to the pharmacy. all medication given as ordered. pt left in stable condition and was picked up by his son. IV and ID band removed. discharged teaching completed.
== END 2020-07-11 19:03 | disposition home health service (06) | DRG 177 ==
LOC: ER 09:45 → TELE3 16:08
PROVIDERS: ADMIT Internal Medicine; ATTEND Student in an Organized Health Care Education/Training Program
PROC: XW033H5 Introduction of Tocilizumab into Peripheral Vein, Percutaneous Approach, New Technology Group 5 (ICD-10-PCS; principal; 2020-07-03)
PROC: XW13325 Transfusion of Convalescent Plasma (Nonautologous) into Peripheral Vein, Percutaneous Approach, New Technology Group 5 (ICD-10-PCS; 2020-07-06)
DX: U07.1 COVID-19 (principal); J12.82 Pneumonia due to coronavirus disease 2019; J96.01 Acute respiratory failure with hypoxia; N17.0 Acute kidney failure with tubular necrosis; Z68.41 Body mass index [BMI] 40.0-44.9, adult; E66.01 Morbid (severe) obesity due to excess calories; Z87.891 Personal history of nicotine dependence; R74.01 Elevation of levels of liver transaminase levels
CPT/HCPCS: 36415; 36600; 70030-TC; 71045; 83605; 83615; 83735; 84100; 85025; 85730; 86140; 86480; 86803; 86850; 86900; 86901; 87040; 87070; 87086; 87328; 87806; 93005; A4217; A4663; A9150; G0378; J0456; J0696; J1100; J1200; J1650; J3262; J3490; J3535; J7030; J7040; J7050; J7060; P9016-BL; P9017-BL; U0003